=== PATIENT | male | born 1955 | race Caucasian/White ===

== ENCOUNTER 2024-03-31 14:06 | Emergency (ER) | payer MEDICARE, OTHER ==
[~2024-03-31] VITALS: Ht 170.2 cm; Wt 73.0 kg
[2024-03-31 15:43] VITALS: BP 147/91; TEMP 98.2
[2024-03-31] MEDS ORDERED: AMOX-430 PO (16:15)
[2024-03-31 17:45] VITALS: O2SAT 100
== END 2024-03-31 17:46 | disposition home or self-care (01) ==
LOC: ER 14:14
DX: H93.8X1 Other specified disorders of right ear (principal); Z79.899 Other long term (current) drug therapy